=== PATIENT | female | born 1995 | race Caucasian/White ===

== ENCOUNTER 2024-10-13 19:47 | Observation (INO) ==
[2024-10-13] MEDS ORDERED: 0.9 % SODIUM CHLORIDE 1000 ML 1,000 ML IV SCH (20:15)
[2024-10-13] MEDS: ONDANSETRON HCL/PF 4 MG/2 ML VIAL IVP ONE (20:28)
[2024-10-13] MEDS: 0.9 % SODIUM CHLORIDE 1000 ML 1,000 ML IV ONE (20:29)
[2024-10-13 20:39] LABS: Urine Appearance CLEAR (CLEAR); Urine Blood NEGATIVE (NEG - TRACE); Urine Color YELLOW (STRAW/YELL.); Urine Urobilinogen Normal (NORMAL)
[2024-10-13] MEDS ORDERED: 0.9 % SODIUM CHLORIDE 50 ML IV ONE (21:48)
[2024-10-13] MEDS ORDERED: PROMETHAZINE HCL 25 MG/ML AMPUL IV ONE (21:48)
[2024-10-13] MEDS: PROMETHAZINE HCL 25 MG in 0.9 % SODIUM CHLORIDE 50 ML IV PRN (21:52)
[2024-10-13 22:07] LABS: Basophils%(Percent) Auto 0.4 (0.1-0.85); Eosinophils#(Absolute)Auto 0.1 (0.0-0.2); Eosinophils%(Percent) Auto 0.7 % (0.4-2.8); Granulocytes % - Auto 68.8 % (47.8-71.3); Granulocytes#(Absolute)- Auto 6.5 (2.3-6.0); Hematocrit 38.1 % (35.9-46.7); Mean Corpuscular Volume 87.5 fl (81.0-93.7); Monocytes #(Absolute)- Auto 0.6 (1.1-3.1); Monocytes %(Percent)- Auto 6.1 % (3.6-9.8); Platelet Count 380 K/uL (152-353); White Blood Count 9.5 K/uL (4.3-9.3)
[2024-10-13] MEDS ORDERED: 0.9 % SODIUM CHLORIDE 1000 ML 1,000 ML IV ONE (22:10)
[2024-10-13 22:12] LABS: Potassium 3.6 mmol/L (3.6-5.2)
[2024-10-13] MEDS ORDERED: PROMETHAZINE HCL 25 MG in 0.9 % SODIUM CHLORIDE 50 ML IV PRN (22:35)
[2024-10-13] MEDS ORDERED: ACETAMINOPHEN 500 MG TABLET PO PRN (22:35)
[2024-10-13] MEDS ORDERED: ONDANSETRON HCL/PF 4 MG/2 ML VIAL INJ PRN (22:35)
[2024-10-13] MEDS ORDERED: DOCUSATE SODIUM 100 MG CAPSULE PO PRN (22:35)
[2024-10-13] MEDS: 0.9 % SODIUM CHLORIDE 1000 ML 1,000 ML IV SCH (23:28)
[2024-10-13] MEDS: 0.9 % SODIUM CHLORIDE 1000 ML 1,000 ML IV STA (23:29)
[2024-10-14 05:21] LABS: Basophils%(Percent) Auto 0.5 (0.1-0.85); Eosinophils#(Absolute)Auto 0.1 (0.0-0.2); Eosinophils%(Percent) Auto 1.6 % (0.4-2.8); Granulocytes#(Absolute)- Auto 5.4 (2.3-6.0); Mean Corpuscular Volume 88.5 fl (81.0-93.7); Monocytes #(Absolute)- Auto 0.5 (1.1-3.1); Monocytes %(Percent)- Auto 6.1 % (3.6-9.8); Platelet Count 322 K/uL (152-353); White Blood Count 8.9 K/uL (4.3-9.3)
[2024-10-14 05:38] LABS: Potassium 3.7 mmol/L (3.6-5.2)
[2024-10-14 07:46] VITALS: RESP 19; TEMP 98.4
[2024-10-14] MEDS: PANTOPRAZOLE SODIUM 40 MG TABLET.DR PO SCH (09:11)
[2024-10-14] MEDS: FAMOTIDINE 20 MG TABLET PO SCH (09:11)
[2024-10-14 10:20] VITALS: BP 106/59; PULSE 104
--- NOTE | 2024-10-14 11:39 | Short Stay Summary ---
H&P: HPI History of Present Illness Chief complaint: nausea and vomiting during , orthostatic Narrative: Patient is a 29-year-old female, 10 weeks , second had hyperemesis with first causing hospitalizations as well, presented to the ER with intractable nausea/vomiting and near syncope and low BP. Patient was given Zofran for nausea without success. Patient was admitted to med/surg floor for further observation and treatment and gentle hydration. Review of Systems Status of ROS 10 or more systems reviewed and unremark able except as noted in history and below Constitutional Reports: fatigue; Denies: fever, chills, change in weight, malaise or change in sleep pattern Eyes Denies: change in vision, blurry vision, blind spots or light sensitivity Ears, nose, mouth, and throat Reports: difficulty swallowing; Denies: throat pain, neck pain, throat swelling or hoarseness Cardiovascular Denies: chest pain, palpitations, edema, swelling of feet/ankles or lightheadedness Respiratory Denies: shortness of breath, cough, wheezing, stridor or pain on inspiration Gastrointestinal Reports: nausea, vomiting and difficulty swallowing; Denies: abdominal pain, coffee grounds in vomit, heartburn, diarrhea, constipation, bl oating, feeling full early, change in bowel habits or painful bowel movements Genitourinary Reports: decreased urine ouput; Denies: painful urination, urinary frequency, urinary urgency, urinary incontinence, blood in urine, difficulty voiding, painful menstruation, vaginal bleeding, vaginal discharge or irregular period Musculoskeletal Denies: back pain, neck pain, extremity pain, extremity swelling, joint pain, limited range of motion or joint swelling Integumentary/Breast Denies: rash, itching, redness, skin pain or skin tenderness Neurological Reports: headache and dizziness; Denies: numbness in extremities, weakness in extremities, lack of coordination, vertigo or confusion Psychiatric Reports: difficulty concentrating; Denies: anxiety, mood swings, panic attacks, change in sleep pattern, hopelessness, loss of interest, irritability, paranoia, memory loss, visual hallucinations or auditory hallucinations Endocrine Reports: fatigue; Denies: excessive urination, excessive thirst, cold intolerance, excessive sweating, flushing, heat intolerance, deepening of the voice, change in body appearance or change in libido Hematologic/Lymphatic Denies: easy bruising or easy bleeding Allergic/Immunologic Denies: hives, throat swelling, tongue swelling, facial swelling, wheezing, itchy eyes or seasonal allergies PFSH PFSH Social History Smoking status: never smoker Problems where you live: no known problems Highest level of school completed/degree received: College Gender Identity: female Meds Home Medications and Allergies Home Medications Medication Instructions Recorded Confirmed Type ondansetron 4 mg disintegrating 4 mg PO Q6H PRN nausea and 10/14/24 Rx tablet vomiting #14 tabs promethazine 25 mg tablet 25 mg PO Q6H PRN nausea and 10/14/24 Rx vomiting #7 tabs pyridoxine (vitamin B6) 50 mg 50 mg PO BID hyperemesis #60 tabs 10/14/24 Rx tablet (Vitamin B-6) Allergies Allergy/AdvReac Type Severity Reaction Status Date / Time No Known Drug Allergies Allergy Verified 10/13/24 20:17 Exam Exam: Patient in NAD. Constitutional: abnormal general appearance (disheveled), no apparent distress, average body habitus, no limitations and alert Vital Signs - 24 hr 10/13/24 19:49 10/13/24 20:30 10/13/24 20:40 Temperature 98.4 F Pulse Rate 86 88 82 Pulse Rate [Right Radial] Respiratory Rate 20 18 18 Blood Pressure 124/50 100/60 122/68 Blood Pressure [Le ft Arm] Pulse Oximetry 100 99 100 Oxygen Delivery Me thod Room Air Room Air 10/13/24 20:42 10/13/24 20:44 10/13/24 21:30 Temperature Pulse Rate 90 128 H 79 Pulse Rate [Right Radial] Respiratory Rate 18 18 18 Blood Pressure 112/60 97/57 102/67 Blood Pressure [Le ft Arm] Pulse Oximetry 100 100 99 Oxygen Delivery Me thod Room Air 10/13/24 22:30 10/13/24 22:35 10/13/24 23:06 Temperature 98.5 F 97.6 F Pulse Rate 80 Pulse Rate [Right Radial] 77 Respiratory Rate 18 18 18 Blood Pressure 97/55 97/55 Blood Pressure [Le ft Arm] 98/54 Pulse Oximetry 99 100 99 Oxygen Delivery Me thod Room Air Room Air 10/13/24 23:07 10/13/24 23:23 10/14/24 00:00 Temperature 98.5 F 98.5 F Pulse Rate Pulse Rate [Right Radial] 77 77 Respiratory Rate 18 18 Blood Pressure Blood Pressure [Le ft Arm] 98/54 98/54 Pulse Oximetry 100 100 Oxygen Delivery Me thod Room Air Room Air Room Air 10/14/24 03:38 10/14/24 07:46 10/14/24 09:27 Temperature 98.1 F 98.4 F Pulse Rate 81 Pulse Rate [Right Radial] 79 78 Respiratory Rate 17 19 Blood Pressure 92/54 Blood Pressure [Le ft Arm] 86/45 95/56 Pulse Oximetry 99 100 Oxygen Delivery Me thod Room Air Room Air 10/14/24 10:19 10/14/24 10:19 Temperature Pulse Rate 93 H 104 H Pulse Rate [Right Radial] Respiratory Rate Blood Pressure 109/58 106/59 Blood Pressure [Le ft Arm] Pulse Oximetry Oxygen Delivery Me thod HENMT: normocephalic, head/scalp atraumatic, hearing grossly normal bilaterally, oral mucous membranes abnormal (dry) and dentition normal Eyes: PERRL, EOMs intact bilaterally, conjunctivae normal, no scleral icterus, no papilledema and periorbital findings normal Neck/C-Spine: visual inspection normal, trachea midline, cervical spine no ntender, cervical full ROM noted, supple, no meningeal signs, thyroid normal and no carotid bruits Lymph: no lymphadenopathy noted and no lymphedema noted Chest: inspection of chest normal Respiratory: breath sounds equal bilaterally, normal respiratory effort, clear to auscultation bilaterally, no wheezes, no rales and no retractions Cardiovascular: heart rate abnormal (tachycardic), regular rhythm noted, no gallop, no rub, no murmur, no JVD, no clicks, peripheral pulses 2+ throughout and no bruits noted Gastrointestinal: abdomen normal to inspection, abdomen soft to palpation, nontender to palpation, nontender to percussion, nondistended, normoactive bowel sounds, no hepatosplenomegaly, no masses and no pulsatile mass FHT 164-184 Genitourinary: no CVA tenderness and bladder normal to palpation Back/Pelvis: spine normal to inspection Extremities: normal to inspection, normal to palpation, no tenderness, full ROM, no joint enlargement and no deformity Neurology: dishwashing machine operator II-XII intact, no movement abnormality noted, no focal motor deficit noted, no sensory deficits noted, deep tendon reflexes 2+ bilaterally, gait normal, speech normal, coordination normal, no pronator drift noted, no fasciculations noted and GCS normal Psychiatry: mental status grossly normal, oriented x3, thought process normal, cooperative, affect normal, psychomotor activity normal and memory normal Feel stressed/tense/nervous/anxious/difficulty sleeping: not at all Skin: skin color abnormal Reports (pale), no rash, no lesions, no ecchymosis noted, no wounds, no lacerations, skin turgor normal, no jaundice, no petechiae, no mottling, nails normal and no alopecia Assessment and Plan Assessment and Plan (1) Hyperemesis affecting , antepartum: Code(s): O21.0 - Mild hyperemesis gravidarum (2) Orthostatic hypotension: Code(s): I95.1 - Orthostatic hypotension (3) Acute dehydration: Code(s): E86.0 - Dehydration (4) Anemia affecting : Qualifiers: Trimester: first trimester Qualified Code(s): O99.011 - Anemia complicating , first trimester Code(s): O99.019 - Anemia complicating , unspecified trimester Plan Sodium Chloride 1,000 mls @ 200 mls/hr IV CONT Pantoprazole Sodium 40 mg PO DAILY Famotidine 20 mg PO BID Promethazine Hcl 25 mg in Sodium Chloride 51 mls @ 200 mls/hr IV ONCE PRN Acetaminophen 500 mg PO Q6H PRN Ondansetron Hcl 4 mg INJ Q6H PRN Docusate Sodium 100 mg PO DAILY PRN Promethazine Hcl 25 mg in Sodium Chloride 51 mls @ 200 mls/hr IV Q6H PRN Discharge home for self care. Follow up with OB. Results Labs Labs: CBC 10/13/24 10/14/24 Range/Units 20:24 05:15 WBC 9.5 H 8.9 (4.3-9.3) K/uL RBC 4.4 3.7 L (4.00-5.50) M/uL Hgb 13.0 11.6 L (12.5-15.8) gm/dL Hct 38.1 33.0 L (35.9-46.7) % Plt Count 380 H 322 (152-353) K/uL Gran % 68.8 61.0 (47.8-71.3) % Lymph % (Auto) 24.0 30.8 (20.0-43.0) % [place] % (Auto) 6.1 6.1 (3.6-9.8) % Eos % (Auto) 0.7 1.6 (0.4-2.8) % Baso % (Auto) 0.4 0.5 (0.1-0.85) Lymph # (Auto) 2.3 2.7 (1.1-3.1) [place] # (Auto) 0.6 L 0.5 L (1.1-3.1) Eos # (Auto) 0.1 0.1 (0.0-0.2) Baso # (Auto) 0.0 0.0 (0.0-0.1) Absolute Gran (auto) 6.5 H 5.4 (2.3-6.0) CMP 10/13/24 10/14/24 20:24 05:15 Sodium 135 L 140 Potassium 3.6 3.7 Chloride 100.0 107.0 Carbon Dioxide 26 25 BUN 11 7 Creatinine 0.6 0.6 Glucose 75 74 Calcium 8.8 7.9 L Liver Function 10/13/24 Range/Units 20:24 Total Bilirubin 0.33 (0.0-1.0) mg/dL AST 11 L (15-37) U/L ALT 20 L (30-65) U/L Alkaline Phosphatase 65 (50-136) U/L Albumin 3.4 (3.4-5.0) g/dL Urine 10/13/24 20:24 Urine Color Yellow Urine Appearance Clear Ur Specific [place] 1.030 Urine Protein 1+ Urine Glucose (UA) Normal DS: Providers Provider Date of admission: 10/13/24 22:34 Primary care physician: Mary Kay Correia MD Attending physician on admission: Megan Moon Attending physician on discharge: Megan Moon Discharging clinician: Megan Moon Anticipated date of discharge: 10/14/24 DS: Summary Hospital Course Hospital Course: Patient was evaluated in the ER found to be in no acute distress breath sounds are clear and equal bilaterally. Abdomen soft and nontender on palpation. Normoactive bowel sounds. No rigidity or distention is noted. Lab work is unremarkable. Urinalysis negative for UTI. Patient was given 1 L normal saline IVP and Zofran 4 mg IVP. Patient was able to maintain until offered p.o. challenge to where she started to vomit again. Patient was given additional 1 L normal saline IVP and Phenergan 25 mg IVP. Orthostatics were performed on the patient where she tilted positive. Patient had gravidarum hyperemesis during her initial first during the first trimester. Patient is experiencing very similar symptoms. I discussed with patient importance of getting control of the nausea and vomiting as well as improving the orthostatic hypotension and encouraged the patient to allow me to admit her for further evaluation and treatment. Patient was initially reluctant however did agree to the admission. Once on the floor patient nausea and vomiting resolved and is able to keep PO fluids down. Orthostatics were repeated and negative at this time. Patient is ready to discharge home for self care and follow up with her OB upon discharge. Follow up with PCP in 5-7 days of discharge or sooner if needed. Status at Discharge Overall status at discharge: patient is back to baseline Time Spent with Patient Time attestation: Total time spent providing and/or coordinating discharge services: Discharge Plan Discharge Disposition: Home, Self-Care Condition: Improved Discharge Medications: New ondansetron 4 mg tablet,disintegrating 4 mg PO Q6H PRN (Reason: nausea and vomiting) Qty: 14 0RF promethazine 25 mg tablet 25 mg PO Q6H PRN (Reason: nausea and vomiting) Qty: 7 0RF Rx Instructions: for Nausea and vomiting not relieved with zofran 1/2 - 1 pyridoxine (vitamin B6) [Vitamin B-6] 50 mg tablet 50 mg PO BID Qty: 60 0RF Discharge Orders: Discharge Order (Routine); Ordered 10/14/24 Ordered By: Megan Moon Activity: increase activity as tolerated Diet: advance to your usual diet Diet Detail: crackers by bedside to consume as needed at night and early am and throughout the day Interventions: Discharge Assessment Last Done: 10/14/24 11:12 MED/SURG & ICU Observation Charge Sheet Last Done: 10/14/24 11:12 Patient Instructions: Nausea and Vomiting in (GEN) Activity Restrictions/Additional Instructions: crackers by bedside to consume as needed at night and early am and throughout the day follow up OB this week follow up PCP 1 weeks return to ER or OB if any concerns or fear of dehydration Forms: Portal/Health Info Access Inst Follow-Ups: Mary Kay Correia MD [Primary Care Provider] - Discharge Date/Time: 10/14/24 11:29
--- NOTE | 2024-10-19 13:19 | Emergency Department Note ---
HPI - Nausea/Vomiting/Diarrhea General Chief complaint: Nausea/Vomiting/Diarrhea Stated complaint: vomiting Time Seen by Provider: 10/13/24 20:01 Source: patient Mode of arrival: walk-in Limitations: no limitations History of Present Illness HPI Narrative: 29-year-old female patient presents conscious alert and oriented x 4 to the ER complaining of nausea vomiting that started yesterday is progressively gotten wo rse. Patient states that she is 10 weeks G2, P1 and that she experienced this during her first . Patient states that she has only had a bite of a sandwich today before vomiting it back up. Patient states she is not able to hold water down either. Patient also complains of some dizziness. Denies any fever chills body aches. Denies any cough cold congestion. Denies any chest pain or shortness of breath. MD elicited complaint: Reports nausea and vomiting; Denies diarrhea, abdominal pain or flank pain Pertinent past history: Reports cyclical vomiting; Denies anorexia, bulimia or bowel obstruction Onset (ago): day(s) (2) Associated nausea: No Associated abdominal pain: No Location of pain: Reports none Exacerbating factors: Reports none Relieving factors: Reports none Context: Reports other (); Denies foreign travel, possible food poisoning, sick contacts or recent antibiotic use Associated symptoms: Reports denies other symptoms Related Data Previous Rx's Medication Instructions Recorded ondansetron 4 mg disintegrating 4 mg PO Q6H PRN nausea and 10/14/24 tablet vomiting #14 tabs promethazine 25 mg tablet 25 mg PO Q6H PRN nausea and 10/14/24 vomiting #7 tabs pyridoxine (vitamin B6) 50 mg 50 mg PO BID hyperemesis #60 tabs 10/14/24 tablet (Vitamin B-6) Allergies Allergy/AdvReac Type Severity Reaction Status Date / Time No Known Drug Allergies Allergy Verified 10/13/24 20:17 Review of Systems Status of ROS 10 or more systems reviewed and unremark able except as noted in history and below Gastrointestinal Reports: nausea and vomiting; Denies: abdominal pain or coffee grounds in vomit PFSH PFSH Social History Smoking status: never smoker Problems where you live: no known problems Highest level of school completed/degree received: College Feel stressed/tense/nervous/anxious/difficulty sleeping: not at all Gender Identity: female Exam Constitutional: normal general appearance, no apparent distress and average body habitus Vital Signs - 24 hr 10/13/24 19:49 Temperature 98.4 F Pulse Rate 86 Respiratory Rate 20 Blood Pressure 124/50 Pulse Oximetry 100 Oxygen Delivery Me thod Room Air HENMT: normocephalic and head/scalp atraumatic Eyes: PERRL, EOMs intact bilaterally and conjunctivae normal Neck/C-Spine: visual inspection normal, trachea midline and cervical spine nontender Lymph: no lymphadenopathy noted and no lymphedema noted Chest: inspection of chest normal Respiratory: breath sounds equal bilaterally, normal respiratory effort and clear to auscultation bilaterally Cardiovascular: normal heart rate noted and regular rhythm noted Gastrointestinal: abdomen normal to inspection, abdomen soft to palpation and nontender to palpation Genitourinary: no CVA tenderness Back/Pelvis: spine normal to inspection Extremities: normal to inspection and normal to palpation Neurology: building maintenance supervisor II-XII intact Psychiatry: mental status grossly normal and oriented x3 Skin: skin color normal Course Course Hospital Course: Patient was evaluated in the ER found to be in no acute distress breath sounds are clear and equal bilaterally. Abdomen soft and nontender on palpation. Normoactive bowel sounds. No rigidity or distention is noted. Lab work is unremarkable. Urinalysis negative for UTI. Patient was given 1 L normal saline IVP and Zofran 4 mg IVP. Patient was able to maintain until offered p.o. challenge to where she started to vomit again. Patient was given additional 1 L normal saline IVP and Phenergan 25 mg IVP. Orthostatics were performed on the patient where she tilted positive. Patient had gravidarum hyperemesis during her initial first during the first trimester. Patient is experiencing very similar symptoms. I discussed with patient importance of getting control of the nausea and vomiting as well as improving the orthostatic hypotension and encouraged the patient to allow me to admit her for further evaluation and treatment. Patient was initially reluctant however did agree to the admission. Once on the floor patient nausea and vomiting resolved and is able to keep PO fluids down. Orthostatics were repeated and negative at this time. Patient is ready to discharge home for self care and follow up with her OB upon discharge. Follow up with PCP in 5-7 days of discharge or sooner if needed. Vital Signs Vital signs: Vital Signs Temperature 98.4 F 10/13/24 19:49 Pulse Rate 86 10/13/24 19:49 Respiratory Rate 20 10/13/24 19:49 Blood Pressure 124/50 10/13/24 19:49 Pulse Oximetry 100 10/13/24 19:49 Oxygen Delivery Method Room Air 10/13/24 19:49 Temperature 98.4 F 10/14/24 07:46 Pulse Rate 104 H 10/14/24 10:19 Respiratory Rate 19 10/14/24 07:46 Blood Pressure 106/59 10/14/24 10:19 Pulse Oximetry 100 10/14/24 07:46 Oxygen Delivery Method Room Air 10/14/24 07:46 Discharge Plan Discharge Patient Disposition: Admitted As Observation Condition: Improved Clinical Impression: Orthostatic hypotension, Nausea and vomiting during prior to 22 weeks gestation Interventions: ED Discharge Assessment Last Done: 10/13/24 22:50 ED Discharge Vital Sign Last Done: 10/13/24 23:06 Emergency Department Charge Sheet Last Done: 10/13/24 23:09 Time of Disposition: 22:33 Discharge Date/Time: 10/13/24 22:55
== END 2024-10-14 11:29 | disposition home or self-care (01) ==
LOC: MS 19:47 → ED 19:47 → MS 22:55
PROVIDERS: ADMIT Nurse Practitioner Family; ATTEND Family Medicine
DX: D64.9 Anemia, unspecified; E86.0 Dehydration; O26.51 Maternal hypotension syndrome, first trimester; Z3A.10 10 weeks gestation of pregnancy; Z79.899 Other long term (current) drug therapy; O99.011 Anemia complicating pregnancy, first trimester; O21.1 Hyperemesis gravidarum with metabolic disturbance